=== PATIENT | female | born 1965 | race American Indian/Alaskan Native ===

== ENCOUNTER 2016-07-07 13:10 | Inpatient (IN) | payer MEDICARE ==
[2016-07-07 20:06] LABS: Eosinophils % (Auto) 2.6 % (0.0-4.3); Hematocrit 29.9 % (30.3-42.9); Hemoglobin 9.6 gm/dl (10.1-14.3); Mean Corpuscular HGB Conc 32 % (30-34); Mean Corpuscular Hemoglobin 31 pg (28-32); Mean Corpuscular Volume 96 fl (79-97); Platelet Count 182 K/mm3 (140-440); Red Blood Count 3.11 M/mm3 (3.65-5.03); Red Cell Distribution Width 14.8 % (13.2-15.2); White Blood Count 8.6 K/mm3 (4.5-11.0)
[2016-07-07 20:30] LABS: Albumin 3.8 g/dL (3.9-5); BUN/Creatinine Ratio 5.46; Bilirubin,Total 0.4 mg/dL (0.1-1.2); Calcium 9.2 mg/dL (8.4-10.2); Phosphorous 6.3 mg/dL (2.5-4.5); Total Protein 7.5 g/dL (6.3-8.2)
[2016-07-07 20:31] LABS: Chloride 98.7 mmol/L (98-107)
[2016-07-07 20:32] LABS: Potassium 6.1 mmol/L (3.6-5.0)
--- NOTE | 2016-07-07 20:39 | Emergency Department Report ---
Chief Complaint: Medical Clearance Stated Complaint: GRAPH IN LWR LEFT ARM - HPI History of Present Illness: 51-year-old female past medical history COPD ESRD presents with complaint of occluded graft for hemodialysis, has not had dialysis in several days - ROS Review of Systems: History of hemodialysis - Exam Vital Signs: Vital Signs 07/07/16 14:13 Temperature 98.7 F Pulse Rate 64 Blood Pressure 162/87 O2 Sat by Pulse 100 Oximetry Physical Exam: Patient on oxygen for COPD, states oxygen tank ran out MSE screening note: Focused history and physical exam performed. Due to findings the following was ordered: Screening Assessment/Plan/Differential Dx: Occluded dialysis graft, malfunctioning graft 1- This initial assessment/diagnostic orders/clinical plan/ treatment(s) is/are subject to change based on pt's health status, clinical progression and re- assessment by fellow clinical providers in the ED. Further treatment and workup at subsequent clinical provers discretion. Patient/guardians urged not to elope from ED as their condition may be serious if not clinically assessed and managed. 2-patient may require temporary dialysis port 3-will order predialysis labs, chest x-ray ED Medical Decision Making - Lab Data Result diagrams: 07/07/16 19:34 07/07/16 19:42 ED Disposition for MSE Condition: Stable
[2016-07-07] MEDS ORDERED: PROVENTIL IH ONE (21:42)
[2016-07-07] MEDS ORDERED: LASIX IV ONE (21:42)
[2016-07-07] MEDS ORDERED: D50W (25GM) IV ONE (21:42)
[2016-07-07] MEDS ORDERED: SODIUM BICARBONATE IV ONE (21:42)
[2016-07-07] MEDS ORDERED: CALCIUM CHLORIDE IV ONE (21:42)
[2016-07-07] MEDS ORDERED: KIONEX PO ONE ×2 (21:43→22:24)
--- NOTE | 2016-07-07 23:36 | Emergency Department Report ---
ED General Adult HPI - General Chief complaint: Medical Clearance Stated complaint: GRAPH IN LWR LEFT ARM Time Seen by Provider: 07/07/16 21:41 Source: patient Mode of arrival: Ambulatory Limitations: No Limitations - History of Present Illness Initial comments: 51-year-old female with a past medical history of end-stage renal disease on dialysis presents to the hospital complains of needing dialysis and thrombosed dialysis access. Last dose was 6 days ago. Patient attends dialysis Sunday, , and Sunday. She is due again tomorrow. She went to the [facility] access [facility] today for evaluation and no procedure was performed since he was unable to check her potassium. She is referred to the ER for potassium check and treatment. Patient denies shortness of breath, chest pain, worsening edema. Pt has a loop graft in left arm Sonar Technician: Dr. Mc, vascular doctor: Dr. Hatch - Related Data Home Medications Medication Instructions Recorded Confirmed Last Taken Cinacalcet [Sensipar] 30 mg PO QHS 08/05/13 09/17/14 Unknown Sevelamer Carbonate [Renvela] 2 tab PO TIDWM 08/05/13 09/17/14 Unknown Vit B Cplx #11/FA/C/Biot/Zn Ox 1 tab PO DAILY 08/05/13 09/17/14 Unknown [Dialyvite with Zinc Tablet] Timolol Maleate 1 drop OU DAILY 08/07/13 09/17/14 08/06/13 1 drop OU Travoprost [Travatan Z 0.004%] 1 drops OU BID 08/07/13 09/17/14 08/06/13 21:00 1 drop OU Loratadine [Claritin] 10 mg PO DAILY 09/17/14 09/17/14 Unknown Ondansetron [Zofran] 4 mg PO BID PRN 09/17/14 09/17/14 Unknown traMADol [Ultram 50 MG tab] 50 mg PO BID PRN 09/17/14 09/17/14 Unknown Previous Rx's Medication Instructions Recorded Last Taken Type Acetaminophen/Codeine [Tylenol #3] 1 tab PO Q6H PRN #20 tab 08/17/15 Unknown Rx Ibuprofen [Motrin 800 MG tab] 800 mg PO Q8HR PRN #30 tablet 08/17/15 Unknown Rx Penicillin Vk [Veetids TAB] 500 mg PO QID #40 tablet 08/17/15 Unknown Rx Allergies Allergy/AdvReac Type Severity Reaction Status Date / Time No Known Allergies Allergy Verified 07/03/14 08:14 ED Review of Systems ROS: Stated complaint: GRAPH IN LWR LEFT ARM Other details as noted in HPI Comment: All other systems reviewed and negative Other: Constitutional: No fevers chills Eyes: No eye pain visual changes ENT: No ear pain or throat pain Neck: Denies pain Respiratory: Denies cough wheezing shortness of breath Cardiovascular: Denies chest pain, palpitations, syncope GI: Denies abdominal pain, nausea, vomiting, diarrhea : Denies dysuria, urinary frequency, or urgency Musculoskeletal: Denies back pain, joint swelling Skin: Denies rash, lesions, erythema Neurologic: Denies headache, numbness, weakness Psychiatric: Denies suicidal ideation, hallucinations ED Past Medical Hx - Past Medical History Previous Medical History?: Yes Hx Hypertension: Yes Hx Congestive Heart Failure: No Hx Diabetes: No Hx Renal Disease: Yes (dialysis [facility]) Hx Asthma: No Hx COPD: Yes Hx HIV: No Additional medical history: glaucoma - Surgical History Past Surgical History?: Yes Hx Cholecystectomy: Yes Additional Surgical History: 2 c-sections. FISTULA LEFT ARM. PERM CATH RIGHT THIGH - Social History Smoking Status: Never Smoker Substance Use Type: Prescribed - Medications Home Medications: Home Medications Medication Instructions Recorded Confirmed Last Taken Type Cinacalcet [Sensipar] 30 mg PO QHS 08/05/13 09/17/14 Unknown History Sevelamer Carbonate [Renvela] 2 tab PO TIDWM 08/05/13 09/17/14 Unknown History Vit B Cplx #11/FA/C/Biot/Zn Ox 1 tab PO DAILY 08/05/13 09/17/14 Unknown History [Dialyvite with Zinc Tablet] Timolol Maleate 1 drop OU DAILY 08/07/13 09/17/14 08/06/13 History 1 drop OU Travoprost [Travatan Z 0.004%] 1 drops OU BID 08/07/13 09/17/14 08/06/13 21:00 History 1 drop OU Loratadine [Claritin] 10 mg PO DAILY 09/17/14 09/17/14 Unknown History Ondansetron [Zofran] 4 mg PO BID PRN 09/17/14 09/17/14 Unknown History traMADol [Ultram 50 MG tab] 50 mg PO BID PRN 09/17/14 09/17/14 Unknown History Acetaminophen/Codeine [Tylenol #3] 1 tab PO Q6H PRN #20 tab 08/17/15 Unknown Rx Ibuprofen [Motrin 800 MG tab] 800 mg PO Q8HR PRN #30 tablet 08/17/15 Unknown Rx Penicillin Vk [Veetids TAB] 500 mg PO QID #40 tablet 08/17/15 Unknown Rx ED Physical Exam - General Limitations: No Limitations - Other Other exam information: General: No limitations, patient is alert in no acute distress Head exam: Atraumatic, normocephalic Eyes exam: Normal appearance, pupils equal reactive to light, extraocular movements intact ENT: Moist mucous membrane, normal oropharynx Neck exam: Normal inspection, full range of motion, no meningismus nontender Respiratory exam: Clear to auscultation bilateral, no wheezes, rales, crackles Cardiovascular: Normal rate and rhythm, normal heart sounds Abdomen: Soft, nondistended, and nontender, with normal bowel sounds, no rebound, or guarding Extremity: Full range of motion normal inspection no deformity. Left arm AV loop graft without palpable thrill Back: Normal Inspection, full range of motion, no tenderness Neurologic: Alert, oriented x3, cranial nerves intact, no motor or sensory deficit Psychiatric: normal affect, normal mood Skin: Warm, dry, intact ED Course Vital Signs 07/07/16 07/07/16 07/07/16 14:13 21:50 21:54 Temperature 98.7 F Pulse Rate 64 Respiratory 18 Rate Blood Pressure 162/87 Blood Pressure 170/70 [Right] O2 Sat by Pulse 100 100 Oximetry - Reevaluation(s) Reevaluation #1: 07/08/16 00:07 pt stable - Consultations Consultation #1: 07/08/16 Case was discussed with Dr. Mc stated that Dr. Beyer the vascular surgeon. I then called Dr. Robibns who is on-call for Dr. Beyer and he states that in the past patient has seen Dr Hatch per his records. Patient also confirms that her vascular Dr. Hatch . Dr. Hatch was consulted Regarding need for access for this patient tomorrow ED Medical Decision Making - Lab Data Result diagrams: 07/07/16 19:34 07/07/16 19:42 Lab Results 07/07/16 07/07/16 07/07/16 Range/Units 19:34 19:34 19:34 WBC 8.6 (4.5-11.0) K/mm3 RBC 3.11 L (3.65-5.03) M/mm3 Hgb 9.6 L (10.1-14.3) gm/dl Hct 29.9 L (30.3-42.9) % MCV 96 (79-97) fl MCH 31 (28-32) pg MCHC 32 (30-34) % RDW 14.8 (13.2-15.2) % Plt Count 182 (140-440) K/mm3 Lymph % (Auto) 17.1 (13.4-35.0) % Blanco % (Auto) 7.8 H (0.0-7.3) % Eos % (Auto) 2.6 (0.0-4.3) % Baso % (Auto) 1.0 (0.0-1.8) % Lymph # 1.5 (1.2-5.4) K/mm3 Blanco # 0.7 (0.0-0.8) K/mm3 Eos # 0.2 (0.0-0.4) K/mm3 Baso # 0.1 (0.0-0.1) K/mm3 Seg Neutrophils % 71.5 H (40.0-70.0) % Seg Neutrophils # 6.2 (1.8-7.7) K/mm3 VBG pH (7.320-7.420) Sodium (137-145) mmol/L Potassium (3.6-5.0) mmol/L Chloride (98-107) mmol/L Carbon Dioxide (22-30) mmol/L Anion Gap mmol/L BUN (7-17) mg/dL Creatinine (0.7-1.2) mg/dL Estimated GFR ml/min BUN/Creatinine Ratio % Glucose (65-100) mg/dL Calcium (8.4-10.2) mg/dL Phosphorus (2.5-4.5) mg/dL Magnesium (1.7-2.3) mg/dL Total Bilirubin (0.1-1.2) mg/dL AST (5-40) units/L ALT (7-56) units/L Alkaline Phosphatase (35-129) units/L Total Creatine Kinase (30-135) units/L NT-Pro-B Natriuret Pep 1742 H (0-900) pg/mL Total Protein (6.3-8.2) g/dL Albumin (3.9-5) g/dL Albumin/Globulin Ratio % Blood Type O POSITIVE Antibody Screen Negative 07/07/16 07/07/16 07/07/16 Range/Units 19:42 19:44 19:44 WBC (4.5-11.0) K/mm3 RBC (3.65-5.03) M/mm3 Hgb (10.1-14.3) gm/dl Hct (30.3-42.9) % MCV (79-97) fl MCH (28-32) pg MCHC (30-34) % RDW (13.2-15.2) % Plt Count (140-440) K/mm3 Lymph % (Auto) (13.4-35.0) % Blanco % (Auto) (0.0-7.3) % Eos % (Auto) (0.0-4.3) % Baso % (Auto) (0.0-1.8) % Lymph # (1.2-5.4) K/mm3 Blanco # (0.0-0.8) K/mm3 Eos # (0.0-0.4) K/mm3 Baso # (0.0-0.1) K/mm3 Seg Neutrophils % (40.0-70.0) % Seg Neutrophils # (1.8-7.7) K/mm3 VBG pH 7.258 L (7.320-7.420) Sodium 141 (137-145) mmol/L Potassium 6.1 H* (3.6-5.0) mmol/L Chloride 98.7 (98-107) mmol/L Carbon Dioxide 22 (22-30) mmol/L Anion Gap 26 mmol/L BUN 94 H (7-17) mg/dL Creatinine 17.2 H (0.7-1.2) mg/dL Estimated GFR 3 ml/min BUN/Creatinine Ratio 5.46 % Glucose 121 H (65-100) mg/dL Calcium 9.2 (8.4-10.2) mg/dL Phosphorus 6.3 H (2.5-4.5) mg/dL Magnesium 2.6 H (1.7-2.3) mg/dL Total Bilirubin 0.4 (0.1-1.2) mg/dL AST 7 (5-40) units/L ALT 7 (7-56) units/L Alkaline Phosphatase 94 (35-129) units/L Total Creatine Kinase 52 (30-135) units/L NT-Pro-B Natriuret Pep (0-900) pg/mL Total Protein 7.5 (6.3-8.2) g/dL Albumin 3.8 L (3.9-5) g/dL Albumin/Globulin Ratio 1.0 % Blood Type Antibody Screen - EKG Data -: EKG Interpreted by Me (sinus rhythm 64 LAD, no peaked T waves) - EKG Data When compared to previous EKG there are: no significant change (compared to 02/2011) - Radiology Data Radiology results: image reviewed (chest x-ray: Mild congestion) - Medical Decision Making Patient would need admission due to hyperkalemia and lack of dialysis access. Nephrology and vascular physicians notified. Patient received cocktail for hyperkalemia. No signs of EKGs changes at this time. - Differential Diagnosis volume overload, hyperkalemia, clotted access, CHF, uremia Critical Care Time: No Critical care attestation.: If time is entered above; I have spent that time in minutes in the direct care of this critically ill patient, excluding procedure time. ED Disposition Clinical Impression: ESRD needing dialysis, Hyperkalemia Clotted dialysis access Qualifiers: Encounter type: initial encounter Qualified Code(s): T82.49XA - Other complication of vascular dialysis catheter, initial encounter Disposition: OP ADMITTED IP TO THIS HOSP Is pt being admited?: Yes Condition: Stable Referrals: NIDHI ROBBINS MD [Primary Care Provider] - 3-5 Days Time of Disposition: 23:35 (Dr hammond/hosp)
[2016-07-08] MEDS ORDERED: NACL 0.9% 1000 ML 100 ML IV PRN (01:14)
[2016-07-08] MEDS ORDERED: KIONEX PO ONE (08:01)
--- NOTE | 2016-07-08 08:08 | Consultation ---
History of Present Illness - Reason for Consult Consult date: 07/08/16 end stage renal disease, hyperkalemia Requesting physician: ALFONZO SCHULZ - History of Present Illness 51-year-old female with a past medical history of end-stage renal disease on dialysis presents to the hospital complains of needing dialysis and thrombosed dialysis access. was last sunday. Patient attends dialysis Sunday, , and Sunday. She is due again tomorrow. . She is referred to the ER for potassium check and treatment. Patient denies shortness of breath, chest pain, worsening edema. Pt has a loop graft in left arm Bus Greaser: Dr. Mc, vascular doctor: Dr. Hatch Past History Past Medical History: dialysis, GERD, hypertension Past Surgical History: Other (av access) Social history: denies: prescription drug abuse, IV drug use Family history: hypertension Medications and Allergies Allergies Allergy/AdvReac Type Severity Reaction Status Date / Time No Known Allergies Allergy Verified 07/03/14 08:14 Home Medications Medication Instructions Recorded Confirmed Last Taken Type Cinacalcet [Sensipar] 30 mg PO QHS 08/05/13 07/08/16 07/07/16 History Sevelamer Carbonate [Renvela] 2 tab PO TIDWM 08/05/13 07/08/16 07/07/16 History Vit B Cplx #11/FA/C/Biot/Zn Ox 1 tab PO DAILY 08/05/13 07/08/16 07/07/16 History [Dialyvite with Zinc Tablet] Timolol Maleate 1 drop OU DAILY 08/07/13 07/08/16 07/07/16 History Travoprost [Travatan Z 0.004%] 1 drops OU BID 08/07/13 07/08/16 07/07/16 History Loratadine [Claritin] 10 mg PO DAILY 09/17/14 07/08/16 07/07/16 History Ondansetron [Zofran] 4 mg PO BID PRN 09/17/14 07/08/16 07/07/16 History traMADol [Ultram 50 MG tab] 50 mg PO BID PRN 09/17/14 07/08/16 07/07/16 History Acetaminophen/Codeine [Tylenol #3] 1 tab PO Q6H PRN #20 tab 08/17/15 07/08/16 Rx Ibuprofen [Motrin 800 MG tab] 800 mg PO Q8HR PRN #30 tablet 08/17/15 07/08/16 Rx Penicillin Vk [Veetids TAB] 500 mg PO QID #40 tablet 08/17/15 07/08/16 07/07/16 Rx Active Meds: Active Medications Cinacalcet (Sensipar) 30 mg PO QHS [place] Epoetin Anish (Procrit) 10,000 unit IV YADIEL PRN PRN Reason: hemodialysis Sodium Chloride (Nacl 0.9% 1000 Ml) 100 mls @ 999 mls/hr IV YADIEL PRN PRN Reason: Hypotension Sevelamer Carbonate (Renvela) 1,600 mg PO TIDWM [place] Sodium Polystyrene Sulfonate (Kayexalate) 30 gm PO ONCE ONE Stop: 07/08/16 08:02 Review of Systems Constitutional: fatigue, weakness, malaise Musculoskeletal: other (Av access malfunction) Exam - Vital Signs Vital signs: Vital Signs Temp Pulse BP Pulse Ox 98.7 F 64 162/87 100 07/07/16 14:13 07/07/16 14:13 07/07/16 14:13 07/07/16 14:13 - Physical Exam Narrative exam: General: No limitations, patient is alert in no acute distress Head exam: Atraumatic, normocephalic Eyes exam: Normal appearance, pupils equal reactive to light, extraocular movements intact ENT: Moist mucous membrane, normal oropharynx Neck exam: Normal inspection, full range of motion, no meningismus nontender Respiratory exam: Clear to auscultation bilateral, no wheezes, rales, crackles Cardiovascular: Normal rate and rhythm, normal heart sounds Abdomen: Soft, nondistended, and nontender, with normal bowel sounds, no rebound, or guarding Extremity: Full range of motion normal inspection no deformity. Left arm AV loop graft without palpable thrill Back: Normal Inspection, full range of motion, no tenderness Neurologic: Alert, oriented x3, cranial nerves intact, no motor or sensory deficit Psychiatric: normal affect, normal mood Skin: Warm, dry, intact Results - Lab Results 07/07/16 19:34 07/07/16 19:42 Most recent lab results Calcium 9.2 mg/dL (8.4-10.2) 07/07/16 19:42 Phosphorus 6.3 mg/dL (2.5-4.5) H 07/07/16 19:42 Magnesium 2.6 mg/dL (1.7-2.3) H 07/07/16 19:44 Assessment and Plan Impression: * esrd * hyperkalemia * clotted av fistula * anemia in esrd * htn Plan: * dialysis after dialysis access placed * strict i/os * renal diet * uf with dailysis * epogen with HD * spoke with vascular surgery, plans for likely catheter noted
[2016-07-08 09:23] LABS: BUN/Creatinine Ratio 4.6; Calcium 9.3 mg/dL (8.4-10.2); Chloride 100.8 mmol/L (98-107); Potassium 5.4 mmol/L (3.6-5.0)
--- NOTE | 2016-07-08 10:16 | XRay Report ---
CHEST TWO VIEWS: 07/07/16 13:10:00 CLINICAL: Shortness of breath. COMPARISON: None FINDINGS: Cardiomegaly and central vascular congestion. Linear opacities in the left lung base. No pulmonary consolidation. No pleural effusion. No tubes or lines. The degenerative changes in spine. IMPRESSION: Cardiomegaly and pulmonary venous hypertension. No pulmonary edema.Left basal subsegmental atelectasis.
[2016-07-08] MEDS ORDERED: HEPARIN 10,000 UNITS/10 ML ONE (10:47)
[2016-07-08] MEDS ORDERED: ZOFRAN PO PRN (11:30)
[2016-07-08] MEDS ORDERED: ZOFRAN IV PRN (11:33)
[2016-07-08] MEDS ORDERED: DULCOLAX PR PRN (11:33)
[2016-07-08] MEDS ORDERED: MILK OF MAGNESIA PO PRN (11:33)
[2016-07-08] MEDS ORDERED: TYLENOL PO PRN (11:33)
--- NOTE | 2016-07-08 11:38 | Event Note ---
Date: 07/08/16 See H/p in reports Hyperkalemia Clotted Dialysis access ESRD on HD HTN
[2016-07-08] MEDS: DILAUDID IV PRN ×2 (11:47→16:11)
--- NOTE | 2016-07-08 12:50 | XRay Report ---
AP CHEST: 07/08/16 11:41 CLINICAL: Central line insertion. COMPARISON: 07/07/16 FINDINGS: A left IJ catheter has been inserted and the catheter tip is in the distal SVC near the junction with the left brachiocephalic vein.. The chest is otherwise unchanged.No pneumothorax. Stable cardiomegaly and central vascular congestion. IMPRESSION: Satisfactory line placement. No pneumothorax.
[2016-07-08] MEDS: RENVELA PO SCH ×2 (13:05→14:25)
[2016-07-08] MEDS ORDERED: HEPARIN ONE (16:03)
[2016-07-08] MEDS ORDERED: NACL 0.9 (PRIMING MACHINE ONLY DIALYSIS) MC ONE (16:04)
[2016-07-08] MEDS: PROCRIT IV PRN (16:09)
[2016-07-08] MEDS ORDERED: HEPARIN IV PRN (16:13)
--- NOTE | 2016-07-08 16:25 | History and Physical Report ---
CHIEF COMPLAINT: Clotted dialysis access. HISTORY OF PRESENT ILLNESS: A 51-year-old with past medical history of end-stage renal disease, comes in for thrombosed dialysis access. Last dialysis was 6 days ago. The patient goes to dialysis Sunday, and Sunday. She went to ____ for evaluation, no procedure was performed, and they were unable to check her potassium. She is referred to ER for potassium check and access of dialysis site. The patient's cable installation technician is Dr. Cruz and vascular surgeon is Dr. Hatch. CURRENT MEDICATIONS: Sensipar 30 mg p.o. at bedtime, Renvela 2 tablets p.o. t.i.d., timolol drops and travoprost drops b.i.d., loratadine 10 mg p.o. daily, Zofran 4 mg p.o. b.i.d., tramadol 50 mg p.o. b.i.d. PAST MEDICAL HISTORY: As mentioned, significant for hypertension, end-stage renal disease, COPD, and glaucoma. PAST SURGICAL HISTORY: Significant for cholecystectomy; C-sections; fistula, left arm; Perm-A-Cath, right thigh. SOCIAL HISTORY: Does not smoke. CURRENT MEDICATIONS: On the chart. REVIEW OF SYSTEMS: Significant for shortness of breath secondary to volume overload. Otherwise, review of systems is essentially negative. A 14-point review of systems done. PHYSICAL EXAMINATION: GENERAL: Middle-aged female in no distress. VITAL SIGNS: Blood pressure is 162/87, temperature is 98.7, pulse is 64, sats are 100%. HEENT: Unremarkable. Pupils equal and reactive. NECK: Supple, no lymphadenopathy, no thyromegaly. LUNGS: Clear to auscultation and percussion. Good air entry. CARDIOVASCULAR: S1, S2 heard. No gallop, no murmur, no rub. Apical impulse in left fifth intercostal space and midclavicular line. ABDOMEN: Soft and benign. No hepatosplenomegaly. No guarding, no rigidity. Hernial orifices are normal. EXTREMITIES: Good pedal pulses. No pedal edema. CENTRAL NERVOUS SYSTEM: Alert and oriented x 4, nonfocal exam. LABORATORY DATA: Significant for potassium of 6.1, BUN and creatinine 94 and 17.2, hemoglobin is 9.6 and hematocrit is 29.9. BNP is 1742. EKG does show sinus rhythm, no significant change. No peaked T waves. Chest x-ray, slight volume overload present. Mild congestion. ASSESSMENT AND PLAN: 1. Hyperkalemia. Potassium lowering cocktail was given in the ER in the form of D50W, insulin, sodium bicarbonate, calcium chloride, and Kayexalate. We will recheck the potassium. 2. Clotted dialysis access. Dr. Hatch, vascular surgery, consulted. 3. End-stage renal disease, needing dialysis. Dr. Cruz consulted. 4. Hypertension. Continue antihypertensives. 5. Chronic pain. Continue Tylenol No. 3. 6. Deep venous thrombosis prophylaxis, Lovenox 30 mg subcutaneous daily. JOB# [id number] VSM/NTS
[2016-07-08] MEDS ORDERED: TRAVOPROST OU SCH (22:00)
[2016-07-09] MEDS: XALATAN 0.005% OU SCH ×3 (03:13→23:38)
[2016-07-09] MEDS: SENSIPAR PO SCH ×4 (03:13→22:53)
[2016-07-09] MEDS: DILAUDID IV PRN ×3 (03:32→22:44)
[2016-07-09 05:55] LABS: BUN/Creatinine Ratio 4.38; Calcium 9.4 mg/dL (8.4-10.2); Chloride 98.9 mmol/L (98-107)
[2016-07-09] MEDS ORDERED: TIMOLOL MALEATE OU SCH (10:00)
[2016-07-09] MEDS: CLARITIN PO SCH (11:31)
[2016-07-09] MEDS: RENVELA PO SCH ×6 (11:35→17:54)
[2016-07-09] MEDS: TIMOPTIC OU SCH (11:35)
--- NOTE | 2016-07-09 12:50 | Discharge Summary ---
Providers - Providers Date of Admission: 07/08/16 12:36 Date of discharge: 07/09/16 Attending physician: RUMA SAHA Primary care physician: NIDHI ROBBINS Hospitalization Condition: Stable Hospital course: Discharge Diagnosis: * ESRD on HD * Hyperkalemia due to ESRD * Clotted AV fistula s/p perm cath placement * Anemia in ESRD * hypotension, chronic on midodrine * chronic glucoma Disposition: DISCHARGED TO HOME OR SELFCARE Time spent for discharge: 32 minutes Core Measure Documentation - Palliative Care Palliative Care/ Comfort Measures: Not Applicable - Core Measures Any of the following diagnoses?: none Exam - Constitutional Vitals: Temp Pulse Resp BP Pulse Ox 98.7 F 60 16 112/56 96 07/09/16 08:03 07/09/16 08:03 07/09/16 08:03 07/09/16 08:03 07/09/16 08:03 General appearance: Present: no acute distress - EENT Eyes: Present: EOM intact ENT: hearing intact, clear oral mucosa - Neck Neck: Present: supple, normal ROM - Respiratory Respiratory effort: normal Respiratory: bilateral: CTA - Cardiovascular Rhythm: regular Heart Sounds: Present: S1 & S2 - Extremities Extremities: no ischemia Peripheral Pulses: within normal limits - Abdominal General gastrointestinal: Present: soft, non-tender, non-distended, normal bowel sounds - Integumentary Integumentary: Present: warm, dry - Musculoskeletal Musculoskeletal: strength equal bilaterally - Psychiatric Psychiatric: other - Neurologic Neurologic: no focal deficits Plan Activity: advance as tolerated Weight Bearing Status: Weight Bear as Tolerated Diet: renal Follow up with: NIDHI ROBBINS MD [Primary Care Provider] - 3-5 Days
--- NOTE | 2016-07-09 13:32 | Progress Note ---
Assessment and Plan Impression: * esrd * hyperkalemia * clotted av fistula * anemia in esrd * htn Plan: * dialysis yesterday with vasc cath * ?plans for intermediate project manager access thrombectomy per dr dean * do no discharge with temporary vasc cath in place * strict i/os * renal diet * uf with dailysis * epogen with HD Subjective Date of service: 07/09/16 Principal diagnosis: esrd Interval history: no new events, resting well in bed Objective - Exam Narrative Exam: General: No limitations, patient is alert in no acute distress Head exam: Atraumatic, normocephalic Eyes exam: Normal appearance, pupils equal reactive to light, extraocular movements intact ENT: Moist mucous membrane, normal oropharynx Neck exam: Normal inspection, full range of motion, no meningismus nontender Respiratory exam: Clear to auscultation bilateral, no wheezes, rales, crackles Cardiovascular: Normal rate and rhythm, normal heart sounds Abdomen: Soft, nondistended, and nontender, with normal bowel sounds, no rebound, or guarding Extremity: Full range of motion normal inspection no deformity. Left arm AV loop graft without palpable thrill Back: Normal Inspection, full range of motion, no tenderness Neurologic: Alert, oriented x3, cranial nerves intact, no motor or sensory deficit Psychiatric: normal affect, normal mood Skin: Warm, dry, intact - Vital Signs Vital signs: Vital Signs - 12hr 07/09/16 07/09/16 07/09/16 02:00 03:32 08:03 Temperature 98.3 F 98.7 F Pulse Rate [ 73 60 Left Radial] Respiratory 24 18 16 Rate Respiratory 18 Rate [ Generalized] Blood Pressure 129/72 112/56 [Left Arm] O2 Sat by Pulse 96 96 Oximetry - Lab 07/07/16 19:34 07/09/16 05:08 Most recent lab results Calcium 9.4 mg/dL (8.4-10.2) 07/09/16 05:08 Phosphorus 6.3 mg/dL (2.5-4.5) H 07/07/16 19:42 Magnesium 2.6 mg/dL (1.7-2.3) H 07/07/16 19:44
--- NOTE | 2016-07-09 17:10 | Progress Note ---
Assessment and Plan Assessment and plan: ESRD on HD Hyperkalemia due to ESRD, improved Clotted AV fistula s/p perm cath placement Anemia in ESRD hypotension, chronic on midodrine chronic glucoma Plan: cont home meds temporary vas cath placed will need further recommendation for HD access monitor BMP, nephrology following History Interval history: Patient seen and examined had vascath placed denies any chest pain or SOB Hospitalist Physical - Constitutional Vitals: Temp Pulse Resp BP Pulse Ox 98.3 F 68 16 127/64 98 07/09/16 16:08 07/09/16 16:08 07/09/16 16:08 07/09/16 16:08 07/09/16 16:08 General appearance: Present: no acute distress - EENT Eyes: Present: PERRL, EOM intact ENT: clear oral mucosa - Neck Neck: Present: supple, normal ROM - Respiratory Respiratory effort: normal Respiratory: bilateral: CTA - Cardiovascular Rhythm: regular Heart Sounds: Present: S1 & S2 - Extremities Extremities: no ischemia Peripheral Pulses: within normal limits - Abdominal General gastrointestinal: deferred, soft, non-tender - Integumentary Integumentary: Present: warm, dry - Psychiatric Psychiatric: intact judgment & insight - Neurologic Neurologic: no focal deficits Results - Labs CBC & Chem 7: 07/07/16 19:34 07/10/16 09:12 Labs: Laboratory Last Values WBC 8.6 K/mm3 (4.5-11.0) 07/07/16 19:34 RBC 3.11 M/mm3 (3.65-5.03) L 07/07/16 19:34 Hgb 9.6 gm/dl (10.1-14.3) L 07/07/16 19:34 Hct 29.9 % (30.3-42.9) L 07/07/16 19:34 MCV 96 fl (79-97) 07/07/16 19:34 MCH 31 pg (28-32) 07/07/16 19:34 MCHC 32 % (30-34) 07/07/16 19:34 RDW 14.8 % (13.2-15.2) 07/07/16 19:34 Plt Count 182 K/mm3 (140-440) 07/07/16 19:34 Lymph % (Auto) 17.1 % (13.4-35.0) 07/07/16 19:34 [place] % (Auto) 7.8 % (0.0-7.3) H 07/07/16 19:34 Eos % (Auto) 2.6 % (0.0-4.3) 07/07/16 19:34 Baso % (Auto) 1.0 % (0.0-1.8) 07/07/16 19:34 Lymph # 1.5 K/mm3 (1.2-5.4) 07/07/16 19:34 [place] # 0.7 K/mm3 (0.0-0.8) 07/07/16 19:34 Eos # 0.2 K/mm3 (0.0-0.4) 07/07/16 19:34 Baso # 0.1 K/mm3 (0.0-0.1) 07/07/16 19:34 Seg Neutrophils % 71.5 % (40.0-70.0) H 07/07/16 19:34 Seg Neutrophils # 6.2 K/mm3 (1.8-7.7) 07/07/16 19:34 VBG pH 7.258 (7.320-7.420) L 07/07/16 19:44 Sodium 143 mmol/L (137-145) 07/09/16 05:08 Potassium 5.0 mmol/L (3.6-5.0) 07/09/16 05:08 Chloride 98.9 mmol/L (98-107) 07/09/16 05:08 Carbon Dioxide 27 mmol/L (22-30) 07/09/16 05:08 Anion Gap 22 mmol/L 07/09/16 05:08 BUN 53 mg/dL (7-17) H 07/09/16 05:08 Creatinine 12.1 mg/dL (0.7-1.2) H 07/09/16 05:08 Estimated GFR 4 ml/min 07/09/16 05:08 BUN/Creatinine Ratio 4.38 % 07/09/16 05:08 Glucose 110 mg/dL (65-100) H 07/09/16 05:08 Calcium 9.4 mg/dL (8.4-10.2) 07/09/16 05:08 Phosphorus 6.3 mg/dL (2.5-4.5) H 07/07/16 19:42 Magnesium 2.6 mg/dL (1.7-2.3) H 07/07/16 19:44 Total Bilirubin 0.4 mg/dL (0.1-1.2) 07/07/16 19:42 AST 7 units/L (5-40) 07/07/16 19:42 ALT 7 units/L (7-56) 07/07/16 19:42 Alkaline Phosphatase 94 units/L (35-129) 07/07/16 19:42 Total Creatine Kinase 52 units/L (30-135) 07/07/16 19:42 NT-Pro-B Natriuret Pep 1742 pg/mL (0-900) H 07/07/16 19:34 Total Protein 7.5 g/dL (6.3-8.2) 07/07/16 19:42 Albumin 3.8 g/dL (3.9-5) L 07/07/16 19:42 Albumin/Globulin Ratio 1.0 % 07/07/16 19:42 Blood Type O POSITIVE 07/07/16 19:34 Antibody Screen Negative 07/07/16 19:34
--- NOTE | 2016-07-10 00:07 | Admit Criteria Form ---
Admission Criteria Documentation: RENAL FAILURE, CHRONIC Clinical Indications for Admission to Inpatient Care (Place 'X' for any and all applicable criteria): Admission is indicated for ANY ONE of the following (1)(2)(3)(4)(5): [ X]I. Inpatient admission required rather than observation care (Use Renal Failure, Chronic: Observation Care Criteria as appropriate) because of ANY ONE of the following: [ ]a) Volume overload or uremic symptoms (eg, clinically significant pulmonary edema, hypertension, pericarditis, acidosis) too severe for, or not responsive (eg, for over 24 hours) to emergency department or observation care dialysis or treatment regimen (11) [ ]b) Hemodynamic instability that is severe or persistent [ ]c) Respiratory distress that is severe or persistent (11) [X ]d) Clinically significant electrolyte abnormality that requires inpatient care (eg,hyperkalemia with severe ECG findings)[B] [ ]e) Supplement O2 or respiratory therapy for over 24hrs that is performable only in acute inpatient setting [ ]f) Continuous IV infusion of anticoagulation, platelet inhibitor, vasoactive, or Antiarrhythmic medication (15), [ ]g) Pulmonary artery catheter monitoring [ ]h) Temporary pacemaker placement [ ]i) Emergent pericardiocentesis [ ]j) Other condition, treatment or monitoring requiring inpatient admission [ ]II. Unexplained syncope [A] [ ]III. Recurrent seizures [ ]IV. Severe infections not treatable in outpatient setting (eg, peritonitis)(9 ) [ ]V. Cardiac arrhythmias of immediate concern [ ]. Encephalopathy [ ]VII.Bleeding abnormalities (eg, platelet dysfunction) with active (eg, gastrointestinal) bleeding Extended stay beyond goal length of stay may be needed for (3)(4)(35)(36): [ ]a) Continuing uremic complications [ ]b) Comorbidities or complications The original [employer] content created by [employer] has been revised. The portions of the content which have been revised are identified through the use of italic text or in bold, and [facility] has neither reviewed nor approved the modified material. All other unmodified content is copyright [employer]. Please see references footnoted in the original [facility] edition 2016 Admission Criteria Met: Yes
[2016-07-10] MEDS: DILAUDID IV PRN ×2 (04:43→19:47)
--- NOTE | 2016-07-10 08:58 | Progress Note ---
Assessment and Plan Impression: * esrd * hyperkalemia * clotted av fistula * anemia in esrd * htn Plan: * dialysis yesterday with vasc cath * ?plans for manager long term care access thrombectomy per dr dean * do no discharge with temporary vasc cath in place * strict i/os * renal diet * uf with dailysis * epogen with HD Subjective Date of service: 07/10/16 Principal diagnosis: esrd Interval history: no new events, resting well in bed Objective - Exam Narrative Exam: General: No limitations, patient is alert in no acute distress Head exam: Atraumatic, normocephalic Eyes exam: Normal appearance, pupils equal reactive to light, extraocular movements intact ENT: Moist mucous membrane, normal oropharynx Neck exam: Normal inspection, full range of motion, no meningismus nontender Respiratory exam: Clear to auscultation bilateral, no wheezes, rales, crackles Cardiovascular: Normal rate and rhythm, normal heart sounds Abdomen: Soft, nondistended, and nontender, with normal bowel sounds, no rebound, or guarding Extremity: Full range of motion normal inspection no deformity. Left arm AV loop graft without palpable thrill Back: Normal Inspection, full range of motion, no tenderness Neurologic: Alert, oriented x3, cranial nerves intact, no motor or sensory deficit Psychiatric: normal affect, normal mood Skin: Warm, dry, intact - Vital Signs Vital signs: Vital Signs - 12hr 07/09/16 07/09/16 07/09/16 22:00 22:44 23:14 Temperature Pulse Rate [ Left Radial] Respiratory 18 18 16 Rate Respiratory 18 Rate [ Generalized] Blood Pressure [Left Arm] O2 Sat by Pulse Oximetry 07/10/16 07/10/16 07/10/16 01:30 04:43 08:00 Temperature 98.5 F 98.5 F Pulse Rate [ 69 64 Left Radial] Respiratory 20 18 22 Rate Respiratory Rate [ Generalized] Blood Pressure 120/67 124/80 [Left Arm] O2 Sat by Pulse 96 96 Oximetry - Lab 07/07/16 19:34 07/09/16 05:08 Most recent lab results Calcium 9.4 mg/dL (8.4-10.2) 07/09/16 05:08 Phosphorus 6.3 mg/dL (2.5-4.5) H 07/07/16 19:42 Magnesium 2.6 mg/dL (1.7-2.3) H 07/07/16 19:44
[2016-07-10] MEDS: RENVELA PO SCH ×3 (09:23→17:08)
[2016-07-10] MEDS: CLARITIN PO SCH (09:23)
[2016-07-10] MEDS: XALATAN 0.005% OU SCH (09:23)
[2016-07-10 10:19] LABS: BUN/Creatinine Ratio 4.02; Calcium 9.2 mg/dL (8.4-10.2); Chloride 95.8 mmol/L (98-107)
--- NOTE | 2016-07-10 12:21 | Progress Note ---
Assessment and Plan Assessment and plan: Clotted AV fistula. A vascular catheter placed and dialysis continued. Sent a page to Dr. Hatch about d/c planning ESRD on HD Hyperkalemia due to ESRD, now resolved Anemia due to ESRD Hypotension, chronic on midodrine Glucoma Full code status. Discharge planning. Discussed case with Dr. Cruz. For possible discharge tomorrow. We'll likely discontinue Vas-Cath and refer fistula repair as an outpatient. History Interval history: Patient admitted because of clogged left AV fistula Hospitalist Physical - Physical exam Narrative exam: Gen: Not in acute distress HEENT: Normocephalic, atraumatic Neck :supple, no JVD Lungs: Clear to auscultation bilaterally, no crackles or wheeze. Heart :S1 and S2 regular, no murmurs no gallop Abdomen:soft, nontender, nondistended, normal bowel sounds Ext: left av fistula, no thrill. no clubbing or cyanosis Neuro: Awake alert oriented x 3 - Constitutional Vitals: Temp Pulse Resp BP Pulse Ox 98.5 F 64 22 124/80 96 07/10/16 08:00 07/10/16 08:00 07/10/16 08:00 07/10/16 08:00 07/10/16 08:00 General appearance: Present: no acute distress Results - Labs CBC & Chem 7: 07/07/16 19:34 07/11/16 05:07 Labs: Laboratory Last Values WBC 8.6 K/mm3 (4.5-11.0) 07/07/16 19:34 RBC 3.11 M/mm3 (3.65-5.03) L 07/07/16 19:34 Hgb 9.6 gm/dl (10.1-14.3) L 07/07/16 19:34 Hct 29.9 % (30.3-42.9) L 07/07/16 19:34 MCV 96 fl (79-97) 07/07/16 19:34 MCH 31 pg (28-32) 07/07/16 19:34 MCHC 32 % (30-34) 07/07/16 19:34 RDW 14.8 % (13.2-15.2) 07/07/16 19:34 Plt Count 182 K/mm3 (140-440) 07/07/16 19:34 Lymph % (Auto) 17.1 % (13.4-35.0) 07/07/16 19:34 [place] % (Auto) 7.8 % (0.0-7.3) H 07/07/16 19:34 Eos % (Auto) 2.6 % (0.0-4.3) 07/07/16 19:34 Baso % (Auto) 1.0 % (0.0-1.8) 07/07/16 19:34 Lymph # 1.5 K/mm3 (1.2-5.4) 07/07/16 19:34 [place] # 0.7 K/mm3 (0.0-0.8) 07/07/16 19:34 Eos # 0.2 K/mm3 (0.0-0.4) 07/07/16 19:34 Baso # 0.1 K/mm3 (0.0-0.1) 07/07/16 19:34 Seg Neutrophils % 71.5 % (40.0-70.0) H 07/07/16 19:34 Seg Neutrophils # 6.2 K/mm3 (1.8-7.7) 07/07/16 19:34 VBG pH 7.258 (7.320-7.420) L 07/07/16 19:44 Sodium 141 mmol/L (137-145) 07/10/16 09:12 Potassium 5.0 mmol/L (3.6-5.0) 07/10/16 09:12 Chloride 95.8 mmol/L (98-107) L 07/10/16 09:12 Carbon Dioxide 24 mmol/L (22-30) 07/10/16 09:12 Anion Gap 26 mmol/L 07/10/16 09:12 BUN 62 mg/dL (7-17) H 07/10/16 09:12 Creatinine 15.4 mg/dL (0.7-1.2) H 07/10/16 09:12 Estimated GFR 3 ml/min 07/10/16 09:12 BUN/Creatinine Ratio 4.02 % 07/10/16 09:12 Glucose 93 mg/dL (65-100) 07/10/16 09:12 Calcium 9.2 mg/dL (8.4-10.2) 07/10/16 09:12 Phosphorus 6.3 mg/dL (2.5-4.5) H 07/07/16 19:42 Magnesium 2.6 mg/dL (1.7-2.3) H 07/07/16 19:44 Total Bilirubin 0.4 mg/dL (0.1-1.2) 07/07/16 19:42 AST 7 units/L (5-40) 07/07/16 19:42 ALT 7 units/L (7-56) 07/07/16 19:42 Alkaline Phosphatase 94 units/L (35-129) 07/07/16 19:42 Total Creatine Kinase 52 units/L (30-135) 07/07/16 19:42 NT-Pro-B Natriuret Pep 1742 pg/mL (0-900) H 07/07/16 19:34 Total Protein 7.5 g/dL (6.3-8.2) 07/07/16 19:42 Albumin 3.8 g/dL (3.9-5) L 07/07/16 19:42 Albumin/Globulin Ratio 1.0 % 07/07/16 19:42 Blood Type O POSITIVE 07/07/16 19:34 Antibody Screen Negative 07/07/16 19:34
[2016-07-10] MEDS: SENSIPAR PO SCH (17:10)
[2016-07-10] MEDS: TIMOPTIC OU SCH (18:33)
[2016-07-10] MEDS: PROCRIT IV PRN (22:02)
[2016-07-11] MEDS: DILAUDID IV PRN (01:09)
[2016-07-11] MEDS: XALATAN 0.005% OU SCH ×2 (01:10→23:36)
[2016-07-11] MEDS: SENSIPAR PO SCH ×2 (01:10→23:35)
[2016-07-11 05:53] LABS: BUN/Creatinine Ratio 3.4; Calcium 8.8 mg/dL (8.4-10.2); Chloride 97.3 mmol/L (98-107); Potassium 4.4 mmol/L (3.6-5.0)
--- NOTE | 2016-07-11 10:19 | Progress Note ---
Assessment and Plan Impression: * esrd * hyperkalemia * clotted av fistula * anemia in esrd * htn Plan: * dialysis yesterday with vasc cath on July 10 * Discussed with Dr Hatch. He plans to do thrombectomy tomorrow * do not discharge with temporary vasc cath in place * strict i/os * renal diet * uf with dailysis * epogen with HD Subjective Date of service: 07/11/16 Principal diagnosis: esrd Interval history: Patient is comfortable today. Denies any chest pain or shortness of breath. Uneventful hemodialysis yesterday. Objective - Vital Signs Vital signs: Vital Signs - 12hr 07/10/16 07/11/16 07/11/16 22:53 01:09 01:14 Temperature Pulse Rate 68 Pulse Rate [ Left Radial] Respiratory 20 Rate Respiratory 20 Rate [ Generalized] Blood Pressure 118/76 Blood Pressure [Left Arm] O2 Sat by Pulse Oximetry 07/11/16 07/11/16 01:18 08:00 Temperature 98.2 F Pulse Rate Pulse Rate [ 76 Left Radial] Respiratory 22 Rate Respiratory Rate [ Generalized] Blood Pressure Blood Pressure 130/76 [Left Arm] O2 Sat by Pulse 95 96 Oximetry - General Appearance General appearance: well-developed, well-nourished, appears stated age EENT: PERRL, mucous membranes moist Neck: no JVD, no thyromegaly, no carotid bruit, supple, other (left IJ Vas-Cath in place) Respiratory: Present: Clear to Ascultation Cardiology: regular, normal heart rate, S1S2, no murmurs Gastrointestinal: normal, normoactive bowel sounds Integumentary: no rash, other (AV graft in her left forearm. No bruit or thrill ) - Lab 07/07/16 19:34 07/11/16 05:07 Most recent lab results Calcium 8.8 mg/dL (8.4-10.2) 07/11/16 05:07 Phosphorus 6.3 mg/dL (2.5-4.5) H 07/07/16 19:42 Magnesium 2.6 mg/dL (1.7-2.3) H 07/07/16 19:44
[2016-07-11] MEDS: CLARITIN PO SCH (11:00)
[2016-07-11] MEDS: RENVELA PO SCH ×3 (11:00→16:47)
--- NOTE | 2016-07-11 14:31 | Progress Note ---
Assessment and Plan Assessment and plan: Clotted AV fistula. A vascular catheter placed and dialysis continued. I discussed patient with Dr. Pacheco nephrology. He stated that he spoke to Dr. ibarra and he states that he will do procedure to fix clotted AV fistula tomorrow. ESRD on HD Hyperkalemia due to ESRD, now resolved. Potassium 4.4 today. Anemia due to ESRD Hypotension, chronic. On midodrine Glucoma Full code status. Discharge planning. Discussed case with Dr. Alfonso today. He states Dr. ibarra vascular surgeon will do procedure on left AV fistula tomorrow. Hopefully discharge home tomorrow after procedure History Interval history: Patient admitted because of clotted left AV fistula, no shortness of breath Hospitalist Physical - Physical exam Narrative exam: Gen: Not in acute distress HEENT: Normocephalic, atraumatic Neck :supple, no JVD Lungs: Clear to auscultation bilaterally, no crackles or wheeze. Heart :S1 and S2 regular, no murmurs no gallop Abdomen:soft, nontender, nondistended, normal bowel sounds Ext: left av fistula, no thrill. no clubbing or cyanosis Neuro: Awake alert oriented x 3 - Constitutional Vitals: Temp Pulse Resp BP Pulse Ox 98.2 F 76 22 130/76 96 07/11/16 08:00 07/11/16 08:00 07/11/16 08:00 07/11/16 08:00 07/11/16 08:00 General appearance: Present: no acute distress Results - Labs CBC & Chem 7: 07/07/16 19:34 07/11/16 05:07 Labs: Laboratory Last Values WBC 8.6 K/mm3 (4.5-11.0) 07/07/16 19:34 RBC 3.11 M/mm3 (3.65-5.03) L 07/07/16 19:34 Hgb 9.6 gm/dl (10.1-14.3) L 07/07/16 19:34 Hct 29.9 % (30.3-42.9) L 07/07/16 19:34 MCV 96 fl (79-97) 07/07/16 19:34 MCH 31 pg (28-32) 07/07/16 19:34 MCHC 32 % (30-34) 07/07/16 19:34 RDW 14.8 % (13.2-15.2) 07/07/16 19:34 Plt Count 182 K/mm3 (140-440) 07/07/16 19:34 Lymph % (Auto) 17.1 % (13.4-35.0) 07/07/16 19:34 [place] % (Auto) 7.8 % (0.0-7.3) H 07/07/16 19:34 Eos % (Auto) 2.6 % (0.0-4.3) 07/07/16 19:34 Baso % (Auto) 1.0 % (0.0-1.8) 07/07/16 19:34 Lymph # 1.5 K/mm3 (1.2-5.4) 07/07/16 19:34 [place] # 0.7 K/mm3 (0.0-0.8) 07/07/16 19:34 Eos # 0.2 K/mm3 (0.0-0.4) 07/07/16 19:34 Baso # 0.1 K/mm3 (0.0-0.1) 07/07/16 19:34 Seg Neutrophils % 71.5 % (40.0-70.0) H 07/07/16 19:34 Seg Neutrophils # 6.2 K/mm3 (1.8-7.7) 07/07/16 19:34 VBG pH 7.258 (7.320-7.420) L 07/07/16 19:44 Sodium 140 mmol/L (137-145) 07/11/16 05:07 Potassium 4.4 mmol/L (3.6-5.0) 07/11/16 05:07 Chloride 97.3 mmol/L (98-107) L 07/11/16 05:07 Carbon Dioxide 28 mmol/L (22-30) 07/11/16 05:07 Anion Gap 19 mmol/L 07/11/16 05:07 BUN 32 mg/dL (7-17) H 07/11/16 05:07 Creatinine 9.4 mg/dL (0.7-1.2) H 07/11/16 05:07 Estimated GFR 5 ml/min 07/11/16 05:07 BUN/Creatinine Ratio 3.40 % 07/11/16 05:07 Glucose 98 mg/dL (65-100) 07/11/16 05:07 Calcium 8.8 mg/dL (8.4-10.2) 07/11/16 05:07 Phosphorus 6.3 mg/dL (2.5-4.5) H 07/07/16 19:42 Magnesium 2.6 mg/dL (1.7-2.3) H 07/07/16 19:44 Total Bilirubin 0.4 mg/dL (0.1-1.2) 07/07/16 19:42 AST 7 units/L (5-40) 07/07/16 19:42 ALT 7 units/L (7-56) 07/07/16 19:42 Alkaline Phosphatase 94 units/L (35-129) 07/07/16 19:42 Total Creatine Kinase 52 units/L (30-135) 07/07/16 19:42 NT-Pro-B Natriuret Pep 1742 pg/mL (0-900) H 07/07/16 19:34 Total Protein 7.5 g/dL (6.3-8.2) 07/07/16 19:42 Albumin 3.8 g/dL (3.9-5) L 07/07/16 19:42 Albumin/Globulin Ratio 1.0 % 07/07/16 19:42 Blood Type O POSITIVE 07/07/16 19:34 Antibody Screen Negative 07/07/16 19:34
[2016-07-11] MEDS: TYLENOL #3 PO PRN ×2 (16:48→23:44)
[2016-07-12 08:01] LABS: BUN/Creatinine Ratio 3.41; Calcium 9.4 mg/dL (8.4-10.2); Chloride 94.2 mmol/L (98-107); Potassium 4.6 mmol/L (3.6-5.0)
--- NOTE | 2016-07-12 08:55 | Progress Note ---
Subjective Date of service: 07/12/16 Principal diagnosis: esrd Interval history: patient to be scheduled for declot of the left arm AV graft today, or placement of a tunneled dialysis catheter. NPO for procedure Objective - Constitutional Vitals: Vital Signs - 12hr 07/11/16 07/12/16 23:59 08:20 Temperature 98.6 F 98.2 F Pulse Rate [ 57 L Left Radial] Pulse Rate [ 58 L Right Radial] Respiratory 16 20 Rate Blood Pressure 135/68 128/77 [Left Arm] O2 Sat by Pulse 98 98 Oximetry - Labs CBC & Chem 7: 07/07/16 19:34 07/12/16 07:09 Labs: Abnormal lab results 07/12/16 Range/Units 07:09 Chloride 94.2 L (98-107) mmol/L BUN 43 H (7-17) mg/dL Creatinine 12.6 H (0.7-1.2) mg/dL
--- NOTE | 2016-07-12 09:16 | Progress Note ---
Assessment and Plan Impression: * esrd * hyperkalemia * clotted av fistula * anemia in esrd * htn Plan: * Spoke with patient's nurse and Dr Hatch's notes appreciated * Patient is scheduled for thrombectomy today * Patient had dialysis on Sunday. Next Dialysis could be today or tomorrow * strict i/os * renal diet * uf with dailysis * epogen with HD Subjective Date of service: 07/12/16 Principal diagnosis: esrd Interval history: Patient is comfortable this morning. She has not eaten any breakfast. Denies any shortness of breath. Objective - Vital Signs Vital signs: Vital Signs - 12hr 07/11/16 07/12/16 23:59 08:20 Temperature 98.6 F 98.2 F Pulse Rate [ 57 L Left Radial] Pulse Rate [ 58 L Right Radial] Respiratory 16 20 Rate Blood Pressure 135/68 128/77 [Left Arm] O2 Sat by Pulse 98 98 Oximetry - General Appearance General appearance: well-developed, well-nourished, appears stated age EENT: PERRL, mucous membranes moist Neck: no JVD, no thyromegaly, no carotid bruit, supple, other (left IJ Vas-Cath in place) Respiratory: Present: Clear to Ascultation Cardiology: regular, normal heart rate, S1S2, no murmurs Gastrointestinal: normal, normoactive bowel sounds Integumentary: no rash, other (no edema. Left forearm loop graft. No bruit or thrill) - Lab 07/07/16 19:34 07/12/16 07:09 Most recent lab results Calcium 9.4 mg/dL (8.4-10.2) 07/12/16 07:09 Phosphorus 6.3 mg/dL (2.5-4.5) H 07/07/16 19:42 Magnesium 2.6 mg/dL (1.7-2.3) H 07/07/16 19:44
[2016-07-12] MEDS: DILAUDID IV PRN (09:22)
[2016-07-12] MEDS ORDERED: NACL 0.9 (PRIMING MACHINE ONLY DIALYSIS) MC ONE (11:11)
[2016-07-12] MEDS: PROCRIT IV PRN (11:17)
--- NOTE | 2016-07-12 14:56 | Procedure Note ---
Date of procedure: 07/08/16 Pre-op diagnosis: ESRD/hyperkalemia Post-op diagnosis: same Procedure: Non-tuneled central venous catheter US guidance for vascular access Anesthesia: local Surgeon: TEDDY VIDAL Estimated blood loss: minimal Pathology: none Specimen disposition: to lab Condition: stable Disposition: no change
[2016-07-12] MEDS ORDERED: NACL 0.9% 250ML 250 ML ONE (15:02)
[2016-07-12] MEDS ORDERED: HEPARIN/NS 5000 UNIT/500ML(CATH LAB) 500 ML IR ONE ×2 (15:02→15:20)
[2016-07-12] MEDS ORDERED: HEPARIN 10,000 UNITS/10 ML ONE (15:02)
[2016-07-12] MEDS ORDERED: ANCEF/STERILE WATER 2 GM/20 ML 20 ML IV ONE (15:03)
[2016-07-12] MEDS: XYLOCAINE 1%/ EPI 1:100,000 INFILTRATI ONE ×2 (15:14→15:25)
[2016-07-12] MEDS: SUBLIMAZE ONE ×2 (15:15→15:22)
[2016-07-12] MEDS: VERSED ONE ×2 (15:15→15:22)
[2016-07-12] MEDS ORDERED: WATER FOR INJ (PF) 10 ML ONE (15:46)
[2016-07-12] MEDS ORDERED: CATHFLO ONE (15:46)
--- NOTE | 2016-07-12 16:18 | Procedure Note ---
Date of procedure: 07/12/16 Pre-op diagnosis: Occluded left AV graft Post-op diagnosis: same Procedure: Declot left AV graft Anesthesia: MAC Surgeon: TEDDY VIDAL Estimated blood loss: minimal Pathology: none Condition: stable Disposition: floor
--- NOTE | 2016-07-12 16:32 | Discharge Summary ---
[id number] 07/12/16 Attending physician: ERIKA COPE Primary care physician: NIDHI ROBBINS Hospitalization Condition: Stable Hospital course: Patient is 51 yo with ESRD on dialysis. She presented with clotted av fistula and therefore missed dialysis. She was admitted and Dr. Hatch consulted. Her initial Potassium was 6.1. She was given Kayexalate, Insulin, Glucose, calcium. and Potassium level improved. Nephrology was consulted. Dialysis was done via Vasc access. De-clotting of av fistula was done by Dr. Hatch. She was then discharged home. Total time spent on discharge 32 mins. Disposition: DISCHARGED TO HOME OR SELFCARE - Discharge Diagnoses (1) Clotted dialysis access Status: Acute Qualifiers: Encounter type: initial encounter Qualified Code(s): T82.49XA - Other complication of vascular dialysis catheter, initial encounter (2) ESRD needing dialysis Status: Chronic (3) Hyperkalemia Status: Acute Core Measure Documentation - Palliative Care Palliative Care/ Comfort Measures: Not Applicable - Core Measures Any of the following diagnoses?: none Exam - Physical Exam Narrative exam: Gen: Not in acute distress HEENT: Normocephalic, atraumatic Neck :supple, no JVD Lungs: Clear to auscultation bilaterally, no crackles or wheeze. Heart :S1 and S2 regular, no murmurs no gallop Abdomen:soft, nontender, nondistended, normal bowel sounds Ext: left av fistula,. no clubbing or cyanosis Neuro: Awake alert oriented x 3 - Constitutional Vitals: Temp Pulse Resp BP Pulse Ox 98 F 58 L 18 110/60 98 07/12/16 12:14 07/12/16 12:14 07/12/16 12:14 07/12/16 12:14 07/12/16 08:20 Plan Activity: advance as tolerated Diet: low fat, low cholesterol, low salt, renal Additional Instructions: 1 Primary care physician in one week. 2. Follow-up with Dr. Hatch in one week. 3. coontinue routine hemodialysis as scheduled. Follow up with: NIDHI ROBBINS MD [Primary Care Provider] - 3-5 Days
[2016-07-12 18:37] VITALS: BP 138/66
[2016-07-12] MEDS: RENVELA PO SCH ×2 (20:55→20:56)
[2016-07-12] MEDS: XALATAN 0.005% OU SCH (20:56)
[2016-07-12] MEDS: TIMOPTIC OU SCH (20:56)
[2016-07-12] MEDS: CLARITIN PO SCH (20:56)
--- NOTE | 2016-07-26 11:36 | Operative Report ---
PREOPERATIVE DIAGNOSES: Hyperkalemia, end-stage renal disease, and occluded left arteriovenous graft. POSTOPERATIVE DIAGNOSES: Hyperkalemia, end-stage renal disease, and occluded left arteriovenous graft. PROCEDURES PERFORMED: 1. Ultrasound guidance for vascular access. 2. Non-tunneled central venous catheter. SURGEON: Faustino Hatch MD DYNAMIC BALANCER: None. ANESTHESIA: Local anesthesia. BLOOD LOSS: Minimal. SPECIMENS: None. COMPLICATIONS: None. INDICATION FOR PROCEDURE: The patient presents to the emergency room after several days to weeks of lack of dialysis, access for urgent hemodialysis. OPERATIVE PROCEDURE: The patient was seen in the emergency room. Ultrasound was used to identify both the internal jugular veins, the right internal jugular vein was occluded. The left internal jugular vein was noted to be patent. The left neck and chest were prepped with Chloraprep and draped sterilely. A 1% lidocaine was instilled at the base of the neck. With ultrasound guidance, the access to the left internal jugular vein was completed. A 0.035 wire was passed after access with an 18 gauge needle. A double-lumen 4-Bengali catheter was passed atraumatically. The catheter aspirated and flushed without difficulty. The catheter was secured to the chest wall, into the neck with a 2-0 Prolene. The catheter was locked with heparin 2500 units to the port. The caps were placed on the catheter. A chest x-ray was completed, which confirmed no evidence of hemothorax or pneumothorax. The patient tolerated the procedure. JOB# [id number] ZEUS/EVELYN
--- NOTE | 2016-07-26 12:53 | Operative Report ---
PREOPERATIVE DIAGNOSIS: Occluded left arm arteriovenous graft. POSTOPERATIVE DIAGNOSIS: Occluded left arm arteriovenous graft. PROCEDURES PERFORMED: 1. Introduction of catheter into AV graft x2. 2. Left AV fistulogram. 3. Central venogram. 4. BICYCLE MECHANIC left AV fistula artery. 5. BICYCLE MECHANIC left AV fistula venous. 6. Mechanical thrombectomy, left AV graft. 7. Thrombolysis, left AV graft non-coronary. 8. Radiologic supervision and interpretation. SURGEON: Faustino Hatch MD ASSISTANTS: None. ANESTHESIA: Monitored anesthesia care. BLOOD LOSS: Minimal. SPECIMENS: None. COMPLICATIONS: None. INDICATIONS FOR PROCEDURE: The patient presents to the hospital with hyperkalemia, occluded grafts. She had a non-tunneled catheter placed and then presented for declot of the AV graft. OPERATIVE PROCEDURE: The patient was brought into the cardiac catheterization suite. She was placed supine on the table. The correct patient and the correct site for surgery was identified. The left upper extremity was prepped with Chloraprep and draped in the sterile fashion. A 2% lidocaine was instilled at both the arterial and venous limbs of the loop graft. An 18 gauge single wall needle was used to access the graft towards the arterial and the venous limbs. A 0.035 wire across the anastomosis. An AV fistulogram was then completed followed by central venogram. There was a chronic thrombus in the graft. Activase 6 mg diluted to 10 mL was then instilled into the graft and allowed to indwell. After 5 minutes of indwelling time, the venous stenosis, which was approximately 90% was angioplastied with a 6 mm x 4 cm [place] BICYCLE MECHANIC balloon. A mechanical thrombectomy using a #4 ____ catheter was completed. A central venogram was then completed. The flow was restored. There however was stenosis at the arterial end of the graft. This was approximately 80%. The 6 mm x 4 cm [place] BICYCLE MECHANIC balloon was then used to angioplasty the arterial stenosis with excellent inflow. At the completion of the procedure, there was brisk flow through the graft without residual stenosis or contrast extravasation. The catheter was removed. The access sites were closed with Monocryl and dressed sterilely. The patient tolerated the procedure well. JOB# [id number] MAX/EVELYN
== END 2016-07-12 20:30 | disposition home or self-care (01) | DRG 252 ==
LOC: ED 13:10 → 3A 07-08 12:36
PROVIDERS: ADMIT Internal Medicine; ATTEND Internal Medicine
PROC: B548ZZA Ultrasonography of Superior Vena Cava, Guidance (ICD-10-PCS; principal; 2016-07-08)
PROC: 02HV33Z Insertion of Infusion Device into Superior Vena Cava, Percutaneous Approach (ICD-10-PCS; principal; 2016-07-08)
PROC: 5A1D60Z (ICD-10-PCS; 2016-07-08)
PROC: 057Y3ZZ Dilation of Upper Vein, Percutaneous Approach (ICD-10-PCS; 2016-07-12)
PROC: 037Y3ZZ Dilation of Upper Artery, Percutaneous Approach (ICD-10-PCS; 2016-07-12)
PROC: 03CY3ZZ Extirpation of Matter from Upper Artery, Percutaneous Approach (ICD-10-PCS; 2016-07-12)
PROC: 05CY3ZZ Extirpation of Matter from Upper Vein, Percutaneous Approach (ICD-10-PCS; 2016-07-12)
PROC: B31N1ZZ Fluoroscopy of Other Upper Arteries using Low Osmolar Contrast (ICD-10-PCS; 2016-07-12)
PROC: B51VZZZ Fluoroscopy of Other Veins (ICD-10-PCS; 2016-07-12)
DX: T82.49XA Other complication of vascular dialysis catheter, initial encounter (principal); N18.6 End stage renal disease; I12.0 Hypertensive chronic kidney disease with stage 5 chronic kidney disease or end stage renal disease; E87.5 Hyperkalemia; G89.29 Other chronic pain; J44.9 Chronic obstructive pulmonary disease, unspecified; H40.9 Unspecified glaucoma; K21.9 Gastro-esophageal reflux disease without esophagitis; D63.1 Anemia in chronic kidney disease; I95.89 Other hypotension; Z99.2 Dependence on renal dialysis; Z79.899 Other long term (current) drug therapy; Z90.49 Acquired absence of other specified parts of digestive tract; Z98.890 Other specified postprocedural states; Z82.49 Family history of ischemic heart disease and other diseases of the circulatory system
CPT/HCPCS: 36415; 36905; 71010; 71020; 80048; 80053; 82550; 82805; 83735; 83880; 84100; 85025; 86850; 86900; 86901; 93005; 93010; 96374; 96375; C1725; C1751; C1757; C1769; C1894; J0690; J0885; J1170; J1644; J1815; J1940; J2250; J2405; J2997; J3010; J7030; J7050; Q9967

== ENCOUNTER 2020-11-06 22:31 | Emergency (ER) | payer MEDICARE ==
[2020-11-07 00:59] LABS: Basophils # (Auto) 0.1 K/mm3 (0.0-0.1); Eosinophils # (Auto) 0.3 K/mm3 (0.0-0.4); Eosinophils % (Auto) 3.6 % (0.0-4.3); Hematocrit 29.7 % (30.3-42.9); Hemoglobin 9.7 gm/dl (10.1-14.3); Lymphocytes # (Auto) 1.5 K/mm3 (1.2-5.4); Lymphocytes % (Auto) 18.5 % (13.4-35.0); Mean Corpuscular HGB Conc 33 % (30-34); Mean Corpuscular Volume 90 fl (79-97); Monocytes % (Auto) 12.6 % (0.0-7.3); Platelet Count 207 K/mm3 (140-440); Red Blood Count 3.29 M/mm3 (3.65-5.03); Red Cell Distribution Width 16.7 % (13.2-15.2)
[2020-11-07 02:15] LABS: INR 0.95 (0.87-1.13)
[2020-11-07 02:16] LABS: Partial Thromboplastin Time 31.7 Sec. (24.2-36.6)
[2020-11-07 02:19] LABS: Albumin 4.1 g/dL (3.9-5); Calcium 9.4 mg/dL (8.4-10.2)
--- NOTE | 2020-11-07 02:30 | Emergency Department Report ---
ED Female HPI - General Chief complaint: Vaginal Bleeding Stated complaint: PELVIC PAIN/BLEEDING Time Seen by Provider: 11/07/20 01:27 Source: patient Mode of arrival: Ambulatory Limitations: No Limitations - History of Present Illness Initial comments: Patient is a 55-year-old female presents emergency room with complaints of pelvic cramping that began 4 days ago. She states that this was with the onset of her normal menstrual cycle. She states that she last had a menstrual cycle last month. She states that she has been having heavier bleeding and passing a small amount of clots. She states that she change her pad approximately every 3 hours. She states that she has an appointment with BILLET RECORDER on Sunday10/09/2020 at [facility]. She denies any fever, nausea, vomiting, diarrhea, abnormal vaginal discharge. She states that she has some mild back pain. She states that she does have a history of uterine fibroids. She states that she does not make very much urine secondary to being on dialysis but denies any dysuria with any urine she is able to make. Past medical history of end-stage renal disease on dialysis Sunday, , Sunday, she states she completed a full course of dialysis today, COPD, hypertension. She denies any history of heart disease, cardiac stents, diabetes, DVT/PE. - Related Data Home Medications Medication Instructions Recorded Confirmed Last Taken B Complex 11/Folic/C/Biot/Zinc 1 tab PO DAILY 08/05/13 07/08/16 07/07/16 [Dialyvite with Zinc Tablet] Cinacalcet [Sensipar] 30 mg PO QHS 08/05/13 07/08/16 07/07/16 Sevelamer Carbonate [Renvela] 2 tab PO TIDWM 08/05/13 07/08/16 07/07/16 Travoprost (Nf) [Travatan Z 0.004%] 1 drops OU BID 08/07/13 07/08/16 07/07/16 timoloL maleate [Timolol Maleate] 2 drop OU DAILY 08/07/13 07/09/16 07/07/16 Loratadine (Nf) [Claritin (Nf)] 10 mg PO DAILY 09/17/14 07/08/16 07/07/16 Ondansetron [Zofran TAB] 4 mg PO BID PRN 09/17/14 07/08/16 07/07/16 traMADoL [Ultram 50 MG tab] 50 mg PO BID PRN 09/17/14 07/08/16 07/07/16 ALBUTEROL Inhaler PRN PRN 07/09/16 Unknown Midodrine HCl 5 PO 3XW 07/09/16 Unknown Previous Rx's Medication Instructions Recorded Last Taken Type Acetaminophen/Codeine [Tylenol 1 tab PO Q6H PRN #20 tab 08/17/15 07/07/16 Rx /Codeine # 3 tab] Acetaminophen/Codeine [Tylenol 1 tab PO Q6H PRN #10 tab 11/07/20 Unknown Rx /Codeine # 3 tab] Allergies Allergy/AdvReac Type Severity Reaction Status Date / Time No Known Allergies Allergy Verified 07/03/14 08:14 ED Review of Systems ROS: Stated complaint: PELVIC PAIN/BLEEDING Other details as noted in HPI Comment: All other systems reviewed and negative ED Past Medical Hx - Past Medical History Previous Medical History?: Yes Hx Hypertension: Yes Hx Heart Attack/AMI: No Hx Congestive Heart Failure: Yes (2004) Hx Diabetes: No Hx Deep Vein Thrombosis: No Hx Pulmonary Embolism: No Hx Renal Disease: Yes (dialysis ) Hx Sickle Cell Disease: No Hx Kidney Stones: No Hx Asthma: No Hx COPD: Yes Hx Tuberculosis: No Hx HIV: No Additional medical history: glaucoma - Surgical History Past Surgical History?: Yes Hx Coronary Stent: No Hx Pacemaker: No Hx Internal Defibrillator: No Hx Cholecystectomy: Yes Additional Surgical History: 2 c-sections. FISTULA LEFT ARM. PERM CATH RIGHT THIGH - Social History Smoking Status: Never Smoker Substance Use Type: None - Medications Home Medications: Home Medications Medication Instructions Recorded Confirmed Last Taken Type B Complex 11/Folic/C/Biot/Zinc 1 tab PO DAILY 08/05/13 07/08/16 07/07/16 History [Dialyvite with Zinc Tablet] Cinacalcet [Sensipar] 30 mg PO QHS 08/05/13 07/08/16 07/07/16 History Sevelamer Carbonate [Renvela] 2 tab PO TIDWM 08/05/13 07/08/16 07/07/16 History Travoprost (Nf) [Travatan Z 0.004%] 1 drops OU BID 08/07/13 07/08/1616 History timoloL maleate [Timolol Maleate] 2 drop OU DAILY 08/07/13 07/09/16 07/07/16 History Loratadine (Nf) [Claritin (Nf)] 10 mg PO DAILY 09/17/14 07/08/16 07/07/16 History Ondansetron [Zofran TAB] 4 mg PO BID PRN 09/17/14 07/08/16 07/07/16 History traMADoL [Ultram 50 MG tab] 50 mg PO BID PRN 09/17/14 07/08/16 07/07/16 History Acetaminophen/Codeine [Tylenol 1 tab PO Q6H PRN #20 tab 08/17/15 07/08/16 07/07/16 Rx /Codeine # 3 tab] ALBUTEROL Inhaler PRN PRN 07/09/16 Unknown History Midodrine HCl 5 PO 3XW 07/09/16 Unknown History Acetaminophen/Codeine [Tylenol 1 tab PO Q6H PRN #10 tab 11/07/20 Unknown Rx /Codeine # 3 tab] ED Physical Exam - General Limitations: No Limitations General appearance: alert, in no apparent distress - Head Head exam: Present: atraumatic, normocephalic - Eye Eye exam: Present: normal appearance - ENT ENT exam: Present: mucous membranes moist - Respiratory Respiratory exam: Present: normal lung sounds bilaterally. Absent: respiratory distress, wheezes, rales, rhonchi, chest wall tenderness, accessory muscle use, decreased breath sounds, prolonged expiratory - Cardiovascular Cardiovascular Exam: Present: regular rate, normal rhythm, normal heart sounds. Absent: systolic murmur, diastolic murmur, rubs, gallop - GI/Abdominal GI/Abdominal exam: Present: soft, normal bowel sounds. Absent: distended, tenderness, guarding, rebound, rigid - Neurological Exam Neurological exam: Present: alert, oriented X3 - Psychiatric Psychiatric exam: Present: normal affect, normal mood - Skin Skin exam: Present: warm, dry, intact ED Course Vital Signs 11/07/20 11/07/20 11/07/20 00:10 00:18 02:58 Temperature 98.6 F Pulse Rate 72 Respiratory 18 15 Rate Blood Pressure 167/66 Blood Pressure [Right] O2 Sat by Pulse 97 Oximetry 11/07/20 04:09 Temperature 98.2 F Pulse Rate 72 Respiratory 16 Rate Blood Pressure Blood Pressure 138/65 [Right] O2 Sat by Pulse 99 Oximetry ED Medical Decision Making - Lab Data Result diagrams: 11/07/20 00:35 11/07/20 01:35 Labs 11/07/20 11/07/20 11/07/20 00:35 00:35 00:35 WBC 8.2 RBC 3.29 L Hgb 9.7 L Hct 29.7 L MCV 90 MCH 30 MCHC 33 RDW 16.7 H Plt Count 207 Lymph % (Auto) 18.5 Becker % (Auto) 12.6 H Eos % (Auto) 3.6 Baso % (Auto) 1.0 Lymph # (Auto) 1.5 Becker # (Auto) 1.0 H Eos # (Auto) 0.3 Baso # (Auto) 0.1 Seg Neutrophils % 64.3 Seg Neutrophils # 5.3 PT INR APTT Sodium Potassium Chloride Carbon Dioxide Anion Gap BUN Creatinine Estimated GFR BUN/Creatinine Ratio Glucose Calcium Total Bilirubin AST ALT Alkaline Phosphatase Total Protein Albumin Albumin/Globulin Ratio HCG, Quant 1.62 Blood Type O POSITIVE 11/07/20 11/07/20 01:35 01:35 WBC RBC Hgb Hct MCV MCH MCHC RDW Plt Count Lymph % (Auto) Becker % (Auto) Eos % (Auto) Baso % (Auto) Lymph # (Auto) Becker # (Auto) Eos # (Auto) Baso # (Auto) Seg Neutrophils % Seg Neutrophils # PT 12.6 INR 0.95 APTT 31.7 Sodium 141 Potassium 4.0 Chloride 100.2 Carbon Dioxide 32 H Anion Gap 13 BUN 12 Creatinine 4.8 H Estimated GFR 11 BUN/Creatinine Ratio 3 Glucose 115 H Calcium 9.4 Total Bilirubin 0.40 AST 20 ALT 17 Alkaline Phosphatase 176 H Total Protein 7.2 Albumin 4.1 Albumin/Globulin Ratio 1.3 HCG, Quant Blood Type Vital Signs 11/07/20 11/07/20 11/07/20 00:10 00:18 02:58 Temperature 98.6 F Pulse Rate 72 Respiratory 18 15 Rate Blood Pressure 167/66 Blood Pressure [Right] O2 Sat by Pulse 97 Oximetry 11/07/20 04:09 Temperature 98.2 F Pulse Rate 72 Respiratory 16 Rate Blood Pressure Blood Pressure 138/65 [Right] O2 Sat by Pulse 99 Oximetry - Radiology Data Radiology results: report reviewed Ordering Physician: VALERY FORBES Date of Service: 11/07/20 Procedure(s): US transvaginal Accession Number(s): [id number] cc: VALERY FORBES ULTRASOUND PELVIS INDICATION / CLINICAL INFORMATION: Dysmenorrhea and menorrhagia. TECHNIQUE: Transabdominal and Transvaginal. Duplex Color Doppler used: Yes. COMPARISON: None available FINDINGS: UTERUS: Present. - Appearance (if present): No significant abnormality. - Size in cm (if present): 12.7 x 5.4 x 4.3. - Endometrial Complex (if present): Thickened and slightly heterogeneous. Thickness in cm (if measured) = 1.5 - Mass lesions: None. - Additional findings: None. RIGHT ADNEXA: The ovary is not visualized. No adnexal mass. LEFT ADNEXA: The ovary is not visualized. No adnexal mass. URINARY BLADDER: No significant abnormality. FREE FLUID: Trace. ADDITIONAL FINDINGS: None. IMPRESSION: 1. Suboptimal examination secondary to body habitus and bowel gas. 2. The endometrium appears thickened and slightly heterogeneous. Recommend gynecological consultation and consideration of endometrial sampling. Signer Name: Martina Schmidt MD Signed: 11/07/2020 3:21 AM Workstation Name: [id number] Transcribed By: [facility] Dictated By: Martina Schmidt MD Electronically Authenticated By: Martina Schmidt MD Signed Date/Time: 11/07/20320 DD/ 4 TD/TT: - Medical Decision Making Patient is a 55-year-old female presents emergency room with complaints of pelvic cramping that began 4 days ago. She states that this was with the onset of her normal menstrual cycle. She states that she last had a menstrual cycle last month. She states that she has been having heavier bleeding and passing a small amount of clots. She states that she change her pad approximately every 3 hours. She states that she has an appointment with BILLET RECORDER on Sunday10/09/2020 at [facility] B[facility] RECORDER. She denies any fever, nausea, vomiting, diarrhea, abnormal vaginal discharge. She states that she has some mild back pain. She states that she does have a history of uterine fibroids. She states that she does not make very much urine secondary to being on dialysis but denies any dysuria with any urine she is able to make. Past medical history of end-stage renal disease on dialysis Sunday, , Sunday, she states she completed a full course of dialysis today, COPD, hypertension. She denies any history of heart disease, cardiac stents, diabetes, DVT/PE. Vitals are stable. No abdominal tenderness on exam, no guarding, no rebound, no rigidity, normal bowel sounds, no peritoneal signs. Labs are stable from previous. Patient states that she does not make urine regularly. Pelvic ultrasound:1. Suboptimal examination secondary to body habitus and bowel gas. 2. The endometrium appears thickened and slightly heterogeneous. Recommend gynecological consultation and consideration of endometrial sampling. Patient given pain medication while in the emergency department symptoms improved. Discussed the importance of patient keeping her appointment with her BILLET RECORDER. Patient provided a copy of her ultrasound report to take to the BILLET RECORDER. Patient given prescription for pain medication. Advised patient Please take medication as prescribed as needed. Do not drive or operate machinery when taking pain medication. Please follow-up with your BILLET RECORDER and keep your appointment for Sunday. Return to emergency room for any new or worsening symptoms. Please take your ultrasound report to the BILLET RECORDER. Critical care attestation.: If time is entered above; I have spent that time in minutes in the direct care of this critically ill patient, excluding procedure time. ED Disposition Clinical Impression: Dysmenorrhea, Endometrial thickening on ultrasound Menorrhagia Qualifiers: Menorrhagia type: with regular cycle Qualified Code(s): N92.0 - Excessive and frequent menstruation with regular cycle Disposition: TO HOME OR SELFCARE Is pt being admited?: No Does the pt Need Aspirin: No Condition: Stable Instructions: Abnormal Uterine Bleeding Additional Instructions: Please take medication as prescribed as needed. Do not drive or operate machinery when taking pain medication. Please follow-up with your BILLET RECORDER and keep your appointment for Sunday. Return to emergency room for any new or worsening symptoms. Please take your ultrasound report to the BILLET RECORDER. Prescriptions: Acetaminophen/Codeine [Tylenol /Codeine # 3 tab] 1 tab PO Q6H PRN #10 tab PRN Reason: Pain , Severe (7-10) Referrals: PRIMARY CARE,MD [Primary Care Provider] - 2-3 Days your, associate manager [Other] - 24 Hours Time of Disposition: 03:43 Print Language: FRISIAN
[2020-11-07] MEDS ORDERED: HYDROcodone/ACETAMINOPHEN 5-325 MG TAB PO ONE (02:32)
--- NOTE | 2020-11-07 03:26 | Ultrasound Report ---
ULTRASOUND PELVIS INDICATION / CLINICAL INFORMATION: Dysmenorrhea and menorrhagia. TECHNIQUE: Transabdominal and Transvaginal. Duplex Color Doppler used: Yes. COMPARISON: None available FINDINGS: UTERUS: Present. - Appearance (if present): No significant abnormality. - Size in cm (if present): 12.7 x 5.4 x 4.3. - Endometrial Complex (if present): Thickened and slightly heterogeneous. Thickness in cm (if measure d) = 1.5 - Mass lesions: None. - Additional findings: None. RIGHT ADNEXA: The ovary is not visualized. No adnexal mass. LEFT ADNEXA: The ovary is not visualized. No adnexal mass. URINARY BLADDER: No significant abnormality. FREE FLUID: Trace. ADDITIONAL FINDINGS: None. IMPRESSION: 1. Suboptimal examination secondary to body habitus and bowel gas. 2. The endometrium appears thickened and slightly heterogeneous. Recommend gynecological consultation and consideration of endometrial sampling. Signer Name: Martina Schmidt MD Signed: 11/07/2020 3:21 AM Workstation Name: [id number]
[2020-11-07 04:11] VITALS: BP 138/65
== END 2020-11-07 04:12 | disposition home or self-care (01) ==
LOC: ED 22:31
DX: N92.0 Excessive and frequent menstruation with regular cycle (principal); N94.6 Dysmenorrhea, unspecified; R93.89 Abnormal findings on diagnostic imaging of other specified body structures; I11.0 Hypertensive heart disease with heart failure; I50.9 Heart failure, unspecified; J44.9 Chronic obstructive pulmonary disease, unspecified; Z90.49 Acquired absence of other specified parts of digestive tract; Z98.890 Other specified postprocedural states; Z79.899 Other long term (current) drug therapy
CPT/HCPCS: 36415; 76830; 76856; 80053; 84702; 85025; 85610; 85730; 86900; 86901